=== PATIENT | female | born 1970 ===

== ENCOUNTER 2018-01-21 14:08 | Emergency (ER) | payer OTHER ==
[2018-01-21 14:08] VITALS: BMI 32.9
--- NOTE | 2018-01-21 14:44 | C.PDOC ---
History Of Present Illness 47 yo female come in for evaluation of diffuse posterior neck pain, Right shoulder pain gradually developed for past 2 weeks. Pt admits, noted some rash to anterior chest 1 week ago describes as " burning pain". Otherwise, pt denies known trauma or injury, fever, chills, headache, dizziness, CP, SOB, dyspnea, diaphoresis, palpitation, cough, denies weakness, sensory or vascular deficits to B/L UEs. Ambulate to ED for evaluation, appears in pain. Time Seen by Provider: 01/21/18 14:22 Chief Complaint (Nursing): Upper Extremity Problem/Injury History Per: Patient Onset/Duration Of Symptoms: Gradual Past Medical History Reviewed: Historical Data, Nursing Documentation, Vital Signs Vital Signs: Last Vital Signs Temp 99.4 F 01/21/18 14:44 Pulse 59 L 01/21/18 14:44 Resp 18 01/21/18 14:44 BP 142/85 01/21/18 14:44 Pulse Ox 100 01/21/18 15:44 - Medical History PMH: Asthma, Diabetes, HTN Family History: States: Unknown Family Hx - Social History Hx Tobacco Use: Yes Hx Alcohol Use: Yes Hx Substance Use: No - Immunization History Hx Tetanus Toxoid Vaccination: No Hx Influenza Vaccination: No Hx Pneumococcal Vaccination: No Review Of Systems Except As Marked, All Systems Reviewed And Found Negative. Constitutional: Negative for: Fever, Chills Eyes: Negative for: Vision Change ENT: Negative for: Ear Discharge, Nose Congestion, Throat Pain Cardiovascular: Negative for: Chest Pain, Palpitations, Light Headedness Respiratory: Negative for: Cough, Shortness of Breath, Wheezing Gastrointestinal: Negative for: Nausea Musculoskeletal: Positive for: Neck Pain, Shoulder Pain Skin: Positive for: Rash Neurological: Negative for: Weakness, Numbness, Altered Mental Status, Headache , Dizziness Physical Exam - Physical Exam Appears: Well, Non-toxic, No Acute Distress Skin: Normal Color, Warm, Dry, Rash (vesicular erythematous rash in group to Left upper anterior chest wall. NO edema, no proximal streaking.) Head: Normacephalic Eye(s): bilateral: PERRL Nose: No Flaring, No Discharge Oral Mucosa: Moist Throat: No Erythema, No Drooling Neck: Trachea Midline, No Midline Cervical Tenderness, No Step Off Deformity, Supple, Other (diffuse B/L posterior/lateral cervical tenderness with mod muscle spasm over trapezium muscle.) Chest: Symmetrical, No Deformity, No Ecchymosis, No Subcutaneous Emphysema Cardiovascular: Rhythm Regular, No Murmur, No JVD Respiratory: No Decreased Breath Sounds, No Accessory Muscle Use, No Stridor, No Wheezing Gastrointestinal/Abdominal: Soft, No Tenderness Back: No CVA Tenderness Extremity: Normal ROM (B/L UEs, no neurovascular deficits.), Tenderness (mild over superior aspect Right shoulder extend down to Right upper back with muscle spasm.), No Deformity, No Swelling Neurological/Psych: Oriented x3, Normal Speech, Normal Motor, Normal Sensation, Normal Reflexes ED Course And Treatment O2 Sat by Pulse Oximetry: 100 Pulse Ox Interpretation: Normal - Other Rad C-spine X-Ray: Interpreted by Me, Viewed By Me Interpretation: (+)DJD, no acute fx Right shoulder X-Ray: Interpreted by Me, Viewed By Me Interpretation: (+) hardware Right humerus, no acute fx or dislocation Progress Note: FSBS 113. On re-evaluation, pt is afebrile, hemodynamicaly stable. NOn-toxic. PulsEOx 100% RA. ENT: no acute findings. neck: SUpple, (- ) JVD, (-) carotid bruits B/L. Lungs: CTA B/L, BS equal B/L. Abd: benign, (-) guarding, (-) rebound, (-) RLQ tenderness. Neuorlogicaly intact. SKin: vesicular erythematous " burning" rash to upper aspect anterior left chest wall r/o H.Zoster. No evidence of superimposed infection. C-spine and Right shoulder xray (-). Pt advised on course of ds. Ref. to F/u with PMD in 2-3 days for re-eval. return to ED if any worsening or new changes. Disposition Counseled Patient/Family Regarding: Studies Performed, Diagnosis, Need For Followup, Rx Given - Disposition Referrals: [facility] [Outside] Disposition: HOME/ ROUTINE Disposition Time: 15:30 Condition: STABLE Additional Instructions: Take medication as prescribed Light duty to neck area Follow up with PMD in 2-3 days for re-evaluation. return to ED if any worsening or new changes. Prescriptions: Prednisone [Deltasone] 20 mg PO DAILY #3 tablet traMADol [Ultram] 50 mg PO TID #10 tab Valacyclovir HCl [Valacyclovir] 1,000 mg PO TID #42 tablet Instructions: Shingles, Cervical Muscle Strain Forms: [facility] (German) Print Language: SCOTTISH - Clinical Impression Clinical Impression: Cervical strain, Herpes zoster
[2018-01-21 14:45] VITALS: BP 142/85; PULSE 59; RESP 18; TEMP 99.4; O2SAT 100
--- NOTE | 2018-01-21 19:06 | RAD ---
PROCEDURE: Radiographs of the Right Shoulder HISTORY: pain COMPARISON: No prior. FINDINGS: BONES: No acute fracture or destructive bony lesion identified. Prior ORIF identified at the visualize right humerus within intramedullary nail and proximal interlocking screw identified. Deformity of the mid diaphysis is partially captured is in this exam but not completely, likely representing healed fracture site. Dedicated right humerus radiograph can't fully evaluate the finding better. JOINTS: Normal. Glenohumeral and acromioclavicular joints preserved. No osteoarthritis. SOFT TISSUES: Normal. OTHER FINDINGS: None. IMPRESSION: No acute fracture, subluxation or dislocation. Prior ORIF proximal right humerus as imaged. Distal humerus is not captured in this exam.
--- NOTE | 2018-01-21 19:25 | RAD ---
PROCEDURE: Cervical Spine Radiographs. HISTORY: Pain. COMPARISON: None. FINDINGS: BONES: Reversal of cervical curvature is evident without fracture or spondylolisthesis. DISC SPACES: Minimal spondylosis C5-6 anteriorly and possibly at C6-7 as well. Mild multilevel facet joint degenerative change inferior cervical spine. SOFT TISSUES: Normal. No prevertebral soft tissue swelling. OTHER FINDINGS: None. IMPRESSION: Mild reversal cervical curvature without fracture or spondylolisthesis. Limited degenerative changes identified at the inferior cervical spine as discussed above.
== END 2018-01-21 16:00 | disposition home or self-care (01) ==
LOC: C.ER 14:08
DX: S16.1XXA Strain of muscle, fascia and tendon at neck level, initial encounter (principal); X58.XXXA Exposure to other specified factors, initial encounter; B02.9 Zoster without complications; E11.9 Type 2 diabetes mellitus without complications; I10 Essential (primary) hypertension; Z72.0 Tobacco use

== ENCOUNTER 2018-07-11 16:17 | Emergency (ER) | payer OTHER ==
[2018-07-11 16:18] VITALS: BMI 33.3
[2018-07-11 16:34] VITALS: BP 117/76; PULSE 69; RESP 18; TEMP 97.9; O2SAT 100
--- NOTE | 2018-07-11 17:09 | C.PDOC ---
Time Seen by Provider: 07/11/18 16:35 Chief Complaint (Nursing): Abnormal Skin Integrity Past Medical History Vital Signs: Last Vital Signs Temp 97.9 F 07/11/18 16:29 Pulse 69 07/11/18 16:29 Resp 18 07/11/18 16:29 BP 117/76 07/11/18 16:29 Pulse Ox 100 07/11/18 16:29 - Medical History PMH: Asthma, Diabetes, HTN Family History: States: Unknown Family Hx - Social History Hx Tobacco Use: Yes Hx Alcohol Use: Yes Hx Substance Use: No - Immunization History Hx Tetanus Toxoid Vaccination: No Hx Influenza Vaccination: No Hx Pneumococcal Vaccination: No ED Course And Treatment O2 Sat by Pulse Oximetry: 100 Disposition Counseled Patient/Family Regarding: Diagnosis, Need For Followup, Rx Given - Disposition Referrals: [facility] [Outside] [facility] [Outside] Disposition: HOME/ ROUTINE Disposition Time: 17:10 Condition: STABLE Additional Instructions: FOLLOW UP IN CLINIC NEXT WEEK FOR RE-EVALUATION. APPLY BACITRACIN OINTMENT TO ABRASIONS OF LEFT NECK 3 TIMES A DAY. IF SYMPTOMS GET WORSE OR ANY NEW CONCERNING SYMPTOMS DEVELOP RETURN TO ED. Prescriptions: Cyclobenzaprine [Cyclobenzaprine HCl] 1 tab PO HS PRN #15 tab PRN Reason: Pain, Moderate (4-7) Ibuprofen [Motrin Tab] 1 tab PO Q6H PRN #15 tab PRN Reason: Pain, Moderate (4-7) Triamcinolone 0.1% [Triamcinolone 0.1% Cream] 1 appful TP BID #80 g Instructions: Eczema (Atopic Dermatitis), Neck Pain Forms: [facility] (Frisian), Gen Discharge Inst Ukrainian Print Language: BURMESE - Clinical Impression Clinical Impression: Neck pain without injury, Eczema, Abrasion
--- NOTE | 2018-07-11 17:12 | C.PDOC ---
History Of Present Illness 48 y/o female presents to the ED complaining of an itchy painful rash around her neck for 1 month. She reports having similar rash in the past. States she tried using OTC cortisone cream without improvement. Additionally patient complains of neck pain over a month. Patient denies taking anything for pain. Denies any trauma or fall. No prior history of neck pain. Otherwise she denies any numbness, tingling, fevers, or other complaints. Time Seen by Provider: 07/11/18 16:35 Chief Complaint (Nursing): Abnormal Skin Integrity History Per: Patient History/Exam Limitations: language barrier (translated from Croatian by joanna Ibanez) Onset/Duration Of Symptoms: Days Current Symptoms Are (Timing): Still Present Quality Of Symptoms: Painful, Itching Severity: Moderate Pain Scale Rating Of: 5 Past Medical History Reviewed: Historical Data, Nursing Documentation, Vital Signs Vital Signs: Last Vital Signs Temp 97.9 F 07/11/18 16:29 Pulse 69 07/11/18 16:29 Resp 18 07/11/18 16:29 BP 117/76 07/11/18 16:29 Pulse Ox 100 07/11/18 16:29 - Medical History PMH: Asthma, Diabetes, HTN Family History: States: Unknown Family Hx - Social History Hx Tobacco Use: Yes Hx Alcohol Use: Yes Hx Substance Use: No - Immunization History Hx Tetanus Toxoid Vaccination: No Hx Influenza Vaccination: No Hx Pneumococcal Vaccination: No Review Of Systems Constitutional: Negative for: Fever, Chills Gastrointestinal: Negative for: Nausea, Vomiting, Diarrhea Musculoskeletal: Positive for: Neck Pain. Negative for: Back Pain Skin: Positive for: Rash (to left neck) Neurological: Negative for: Weakness, Numbness Physical Exam - Physical Exam Appears: Well, Non-toxic, No Acute Distress Skin: Warm, Dry, Rash (Several eczematous patches, with small area of abrasions due to excoriations at the left neck) Head: Atraumatic, Normacephalic Eye(s): bilateral: Normal Inspection, PERRL, EOMI Ear(s): Bilateral: Normal Nose: Normal Oral Mucosa: Moist Tongue: Normal Appearing Lips: Normal Appearing Gingiva: Normal Appearing Throat: Normal Neck: Trachea Midline, No Midline Cervical Tenderness, Paracervical Tenderness (and paracervical muscle spasm bilaterally), Supple Chest: Symmetrical Cardiovascular: Rhythm Regular Respiratory: Normal Breath Sounds, No Accessory Muscle Use Pulses: Left Radial: Normal, Right Radial: Normal Neurological/Psych: Oriented x3, Normal Speech ED Course And Treatment O2 Sat by Pulse Oximetry: 100 (RA) Pulse Ox Interpretation: Normal Reassessment Condition: Improved Medical Decision Making Medical Decision Making: Plan: --Motrin 600 mg PO Patient is stable for discharge home. Advised to take meds as prescribed and follow up in the clinic. Disposition Counseled Patient/Family Regarding: Diagnosis, Need For Followup, Rx Given - Disposition Referrals: [facility] [Outside] [facility] [Outside] Disposition: HOME/ ROUTINE Disposition Time: 17:10 Condition: STABLE Additional Instructions: FOLLOW UP IN CLINIC NEXT WEEK FOR RE-EVALUATION. APPLY BACITRACIN OINTMENT TO ABRASIONS OF LEFT NECK 3 TIMES A DAY. IF SYMPTOMS GET WORSE OR ANY NEW CONCERNING SYMPTOMS DEVELOP RETURN TO ED. Prescriptions: Cyclobenzaprine [Cyclobenzaprine HCl] 1 tab PO HS PRN #15 tab PRN Reason: Pain, Moderate (4-7) Ibuprofen [Motrin Tab] 1 tab PO Q6H PRN #15 tab PRN Reason: Pain, Moderate (4-7) Triamcinolone 0.1% [Triamcinolone 0.1% Cream] 1 appful TP BID #80 g Instructions: Eczema (Atopic Dermatitis), Neck Pain Forms: Gen Discharge Inst Croatian, [facility] (German) Print Language: ENGLISH - POA Present On Arrival: None - Clinical Impression Clinical Impression: Neck pain without injury, Eczema, Abrasion - PA / FOLLOW UP REP / Resident Statement MD/DO has reviewed & agrees with the documentation as recorded. - Scribe Statement The provider has reviewed the documentation as recorded by the Scribe (Prema Mortensen) All medical record entries made by the Scribe were at my direction and personally dictated by me. I have reviewed the chart and agree that the record accurately reflects my personal performance of the history, physical exam, medical decision making, and the department course for this patient. I have also personally directed, reviewed, and agree with the discharge instructions and disposition.
== END 2018-07-11 18:01 | disposition home or self-care (01) ==
LOC: C.ER 16:17
DX: L30.9 Dermatitis, unspecified (principal); S10.91XA Abrasion of unspecified part of neck, initial encounter; X58.XXXA Exposure to other specified factors, initial encounter; M54.2 Cervicalgia

== ENCOUNTER 2018-08-12 20:59 | Emergency (ER) | payer OTHER ==
[2018-08-12 21:00] VITALS: BMI 33.3
[2018-08-12 21:20] VITALS: O2SAT 99
--- NOTE | 2018-08-12 21:28 | C.PDOC ---
History Of Present Illness 48 year old female presents to the ED c/o crampy abdominal pain associated with vomit, diarrhea, and decreased PO intake that started today. Patient reports her abdominal pain radiated to her back as well. Patient denies fever, chills, dysuria, hematuria, rash, recent travel, sick contacts. Time Seen by Provider: 08/12/18 21:28 Chief Complaint (Nursing): Abdominal Pain History Per: Patient History/Exam Limitations: no limitations Onset/Duration Of Symptoms: Hrs Current Symptoms Are (Timing): Still Present Location Of Pain/Discomfort: Diffuse Radiation Of Pain To:: Back Quality Of Discomfort: Cramping Associated Symptoms: Nausea, Vomiting, Loss Of Appetite Recent travel outside of the [place]: No Additional History Per: Patient Abnormal Vaginal Bleeding: No Past Medical History Reviewed: Historical Data, Nursing Documentation, Vital Signs Vital Signs: Last Vital Signs Temp 98.5 F 08/12/18 21:11 Pulse 100 H 08/12/18 21:11 Resp 20 08/12/18 21:11 BP 105/61 08/12/18 21:11 Pulse Ox 99 08/12/18 21:11 - Medical History PMH: Asthma, Diabetes, HTN Surgical History: No Surg Hx Family History: States: No Known Family Hx - Social History Hx Tobacco Use: Yes Hx Alcohol Use: No Hx Substance Use: No - Immunization History Hx Tetanus Toxoid Vaccination: No Hx Influenza Vaccination: No Hx Pneumococcal Vaccination: No Review Of Systems Constitutional: Negative for: Fever, Chills Cardiovascular: Negative for: Chest Pain Respiratory: Negative for: Shortness of Breath Gastrointestinal: Positive for: Nausea, Vomiting, Abdominal Pain Genitourinary: Negative for: Dysuria, Hematuria Musculoskeletal: Positive for: Back Pain Skin: Negative for: Rash Neurological: Negative for: Weakness, Numbness, Headache Physical Exam - Physical Exam Appears: Non-toxic, No Acute Distress Skin: Warm, Dry Head: Normacephalic Eye(s): bilateral: Normal Inspection Neck: Supple Chest: Symmetrical Cardiovascular: Rhythm Regular Respiratory: No Rales, No Rhonchi, No Wheezing Gastrointestinal/Abdominal: Soft, Tenderness (mid epigastric), No Guarding, No Rebound Back: Paraspinal Tenderness (paralumbar) Extremity: Bilateral: Atraumatic, Normal Color And Temperature, Normal ROM Neurological/Psych: Oriented x3, Normal Speech, Normal Cognition Gait: Steady ED Course And Treatment - Laboratory Results Result Diagrams: 08/12/18 21:33 08/12/18 21:33 ECG: Interpreted By Me, Viewed By Me ECG Rhythm: Sinus Rhythm (92), Nonspecific Changes O2 Sat by Pulse Oximetry: 99 (ON RA) Pulse Ox Interpretation: Normal - Radiology CXR: Interpreted by Me, Viewed By Me CXR Interpretation: No: Infiltrates, Fracture, Pnemothorax - CT Scan/US CT abd/pelvis Other Rad Studies (CT/US): Read By Radiologist, Radiology Report Reviewed CT/US Interpretation: EXAM: CT Abdomen and Pelvis with IV contrast. CLINICAL HISTORY: Abd pain. TECHNIQUE: Axial computed tomography images of the abdomen and pelvis with intravenous contrast. CONTRAST: With; IV ONLY & VISI 100 MLS. COMPARISON: None provided. FINDINGS: LUNG BASES: The lung bases appear jeff r. No pleural effusions are seen. LIVER: Unremarkable. GALLBLADDER AND BILE DUCTS: Porcelain gallbladder is noted. PANCREAS: Unremarkable. SPLEEN: Unremarkable. ADRENAL GLANDS: Unremarkable. KIDNEYS, URETERS, AND BLADDER: The kidneys appear within normal limits. There is no hydronephrosis or hydroureter. No urinary calculi are seen. STOMACH AND BOWEL: Thick walled fluid filled duodenum and loops of jejunum compatible with severe enteritis. Infectious and inflammatory etiologies are considered. APPENDIX: No evidence of acute appendicitis on CT examination. PERITONEUM: No free fluid. No free air. LYMPH NODES: No lymphadenopathy is evident. REPRODUCTIVE: Unremarkable as visualized. VASCULATURE: No evidence of abdominal aortic aneurysm. BONES: No aggressive appearing osseous lesion. No acute osseous pathology evident. IMPRESSION: 1. Porcelain gallbladder is noted. 2. Svere enteritis. Infectious and inflammatory etiologies are considered. . Electronically signed on Aug 13, 2018 12:00:04 AM EST by: Blanco Finley M.D., BAILEY Certified By ABR & CBCCT. Fellowship Trained MRI and CT Specialist. Progress Note: Plan: - CT abd/pelvis. - EKG. - Labs. - Morphine 2 mg IVP. - Pepcid 20 mg IVP. - IV fluids. - Zofran 4 mg IVP. - UA Disposition Counseled Patient/Family Regarding: Studies Performed, Diagnosis, Need For Followup, Rx Given - Disposition Referrals: [facility] [Outside] [facility] [Outside] Disposition Time: 21:28 Condition: FAIR Additional Instructions: Por favor regrese si los sntomas recurren. Prescriptions: Metronidazole [Flagyl] 500 mg PO TID #21 tablet Ondansetron ODT [Zofran ODT] 1 odt PO BID PRN #6 odt PRN Reason: Nausea/Vomiting Instructions: Acute Abdomen (Belly Pain), Adult (DC), Gallstones (DC) Forms: [employer] (Sami) Print Language: MACANESE - Clinical Impression Clinical Impression: Abdominal pain, Gallstones, Enteritis - Scribe Statement The provider has reviewed the documentation as recorded by the Scribe Art Myers All medical record entries made by the Scribe were at my direction and personally dictated by me. I have reviewed the chart and agree that the record accurately reflects my personal performance of the history, physical exam, medical decision making, and the department course for this patient. I have also personally directed, reviewed, and agree with the discharge instructions and disposition.
[2018-08-12] MEDS ORDERED: Sodium Chloride 0.9% 1,000 ML IV ONE (21:29)
[2018-08-12 21:37] LABS: BASO % 0.4 % (0.0-2.0); EOS # 0.1 K/uL (0.0-0.7); EOS % 0.5 % (0.0-4.0); HEMOGLOBIN 14.9 g/dL (11.0-16.0); LYMPH # 0.6 K/uL (1.0-4.3); MEAN CELL VOLUME 87.4 fL (81.0-99.0); MEAN CORPUSCULAR HEMOGLOBIN 28.9 pg (27.0-31.0); MEAN CORPUSCULAR HGB CONC 33.1 g/dL (33.0-37.0); MEAN PLATELET VOLUME 7.1 fL (7.2-11.7); MONO # 0.4 K/uL (0.0-0.8); MONO % 3.5 % (0.0-10.0); NEUT # 9.2 K/uL (1.8-7.0); NEUT % 89.6 % (50.0-75.0); PLATELET COUNT 348 K/uL (130-400); RBC 5.15 Mil/uL (3.80-5.20); RED CELL DISTRIBUTION WIDTH 13.6 % (11.5-14.5); WHITE BLOOD COUNT 10.3 K/uL (4.8-10.8)
[2018-08-12] MEDS ORDERED: Sodium Chloride 0.9% 1,000 ML ONE (21:37)
[2018-08-12 21:47] LABS: ALB/GLOB RATIO 1.2 (1.0-2.1); ALBUMIN 4.9 g/dL (3.5-5.0); ALT/SGPT 31 U/L (9-52); AST/SGOT 28 U/L (14-36); BLOOD UREA NITROGEN 16 mg/dL (7-17); CALCIUM 8.9 mg/dl (8.6-10.4); GFR NON-AFRICAN AMERICAN > 60; LIPASE 101 U/L (23-300)
[2018-08-12 21:55] LABS: HCG,QUALITATIVE URINE NEGATIVE (NEGATIVE); SQUAMOUS EPITHIAL 3 /hpf (0-5); URINE BACTERIA RARE (<OCC); URINE BILIRUBIN NEGATIVE (NEGATIVE); URINE BLOOD 1+ (NEGATIVE); URINE CLARITY Hazy (Clear); URINE COLOR Yellow (YELLOW); URINE GLUCOSE (UA) NORMAL (Normal); URINE LEUKOCYTE ESTERASE NEG Leu/uL (Negative); URINE PROTEIN 1+ mg/dL (NEGATIVE); URINE UROBILINOGEN NORMAL mg/dL (0.2-1.0)
[2018-08-12] MEDS ORDERED: Iodixanol 320 MG/ML 100 ML BOTTLE IV ONE (22:37)
[2018-08-12 22:42] LABS: BANDS 2 % (0-2); BASOPHIL 1 % (0-2); EOSINOPHIL 1 % (0-4); LYMPHOCYTE 6 % (20-40); MONOCYTE 4 % (0-10); NEUTROPHIL 86 % (50-75); PLATELET ESTIMATE NORMAL (NORMAL); TOTAL CELLS COUNTED 100
[2018-08-13 00:33] VITALS: BP 124/70; PULSE 86; RESP 18; TEMP 97.3
--- NOTE | 2018-08-13 06:59 | CARD ---
APPROVED REPORT Date of service: 08/12/2018 EKG Measurement Heart [id number] <Conclusion> Normal sinus rhythm Possible Left atrial enlargement Nonspecific T wave abnormality Abnormal ECG
--- NOTE | 2018-08-13 10:38 | CT ---
Date of service: 08/12/2018 PROCEDURE: CT Abdomen and Pelvis with and without intravenous contrast HISTORY: diffuse abd pain COMPARISON: 06/19/2016 TECHNIQUE: Axial images of the abdomen were obtained in the pre contrast, portal venous and delayed phases of enhancement. Coronal and sagittal reformats were generated. Contrast dose: Radiation dose: Total exam DLP = 880.68 mGy-cm. This CT exam was performed using one or more of the following dose reduction techniques: Automated exposure control, adjustment of the mA and/or kV according to patient size, and/or use of iterative reconstruction technique. FINDINGS: LOWER THORAX: Unremarkable. LIVER: Unremarkable. No gross lesion or ductal dilatation. GALLBLADDER AND BILE DUCTS: Porcelain gallbladder. PANCREAS: Unremarkable. No gross lesion or ductal dilatation. SPLEEN: Unremarkable. ADRENALS: Unremarkable. No mass. KIDNEYS AND URETERS: Unremarkable. No hydronephrosis. No solid mass. VASCULATURE: Unremarkable. No aortic aneurysm. No aortic atherosclerotic calcification or mural plaque present. BOWEL: Multiple distended loops of small bowel with intraluminal fluid compatible with ileus/early/partial small bowel obstruction. APPENDIX: Normal appendix. PERITONEUM: Unremarkable. No free fluid. No free air. LYMPH NODES: Unremarkable. No enlarged lymph nodes. BLADDER: Unremarkable. REPRODUCTIVE: Unremarkable. BONES: No acute fracture. OTHER FINDINGS: None. IMPRESSION: Multiple distended loops of small bowel with intraluminal fluid compatible with ileus/early/partial small bowel obstruction. Porcelain gallbladder.
== END 2018-08-13 00:33 | disposition home or self-care (01) ==
LOC: C.ER 20:59
DX: K80.20 Calculus of gallbladder without cholecystitis without obstruction (principal); K52.9 Noninfective gastroenteritis and colitis, unspecified; R10.13 Epigastric pain
CPT/HCPCS: 74177; 80053; 81001; 83690; 84703; 85025; 93005; 96361; 96374; 96375; 99285; J2270; J2405; J7030; Q9967